=== PATIENT | male | born 1950 | race African-American/Black ===

== ENCOUNTER 2023-02-22 13:28 | Emergency (ER) | payer OTHER, MEDICARE, BC ==
[~2023-02-22] VITALS: Ht 167.6 cm; Wt 81.6 kg
[2023-02-22] MEDS ORDERED: METHOCARBAMOL500 MG PO (15:40)
[2023-02-22] MEDS ORDERED: NAPROXEN500 MG PO (15:40)
[2023-02-22 16:45] VITALS: BP 168/87
== END 2023-02-22 16:45 | disposition home or self-care (01) | DRG 552 ==
LOC: ED 13:28
DX: M54.2 Cervicalgia (principal); M54.50 Low back pain, unspecified; V49.40XA Driver injured in collision with unspecified motor vehicles in traffic accident, initial encounter